=== PATIENT | male | born 1960 | race Caucasian/White ===

== ENCOUNTER → 2024-02-27 19:41 | Outpatient (REF) | payer OTHER, SELFPAY | LOC: MRI 3T 19:41 | PROVIDERS: ATTENDING PHYSICIAN Specialist; FAMILY PHYSICIAN Family Medicine | DX: R97.20 Elevated prostate specific antigen [PSA] (principal); Z80.42 Family history of malignant neoplasm of prostate | CPT/HCPCS: 72197; A9575 ==

== ENCOUNTER → 2024-08-06 13:29 | Outpatient (REF) | payer OTHER, SELFPAY | LOC: RCS 13:29 | PROVIDERS: ATTENDING PHYSICIAN Internal Medicine Cardiovascular Disease; FAMILY PHYSICIAN Family Medicine | DX: R07.89 Other chest pain (principal) | CPT/HCPCS: 93017; 93350 ==

== ENCOUNTER → 2024-08-09 14:56 | Outpatient (REF) | payer OTHER, SELFPAY | LOC: RCS 14:56 | PROVIDERS: ATTENDING PHYSICIAN Internal Medicine Cardiovascular Disease; FAMILY PHYSICIAN Family Medicine | DX: I49.3 Ventricular premature depolarization (principal) | CPT/HCPCS: 93306 ==

== ENCOUNTER 2025-04-07 06:41 | Day surgery (SDC) | payer OTHER, SELFPAY ==
[2025-04-01 08:35] VITALS: BMI 26.1
--- NOTE | 2025-04-07 07:26 | HP.FOC2 ---
Focused History & Physical
Chief Complaint
HPI:
Chief Complaint: Umbilical hernia
HPI / Indication for Planned Procedure: Will plan for an open umbilical hernia repair with possible mesh
Relevant Past Medical History: Other (Prostate cancer)
Relevant Social History: Negative
Relevant Family History: Negative
Relevant Past Surgical History: Positive for (Prostatectomy)
Review of Systems
Review of Pertinent Systems: All Systems Negative
Medication
See Medication form for detailed medications: Yes
Medication List (including Herbals & OTC):
nxzoehnwwaa-dtqvpihlm-zaa C-Mn 500 mg-400 mg capsule 2 cap PO DAILY 04/01/25
multivitamin 1 tab PO DAILY 04/01/25
tadalafil 5 mg tablet 5 mg PO DAILY 04/01/25
Medications Reviewed: Yes
Allergies and Reactions
Patient has Allergies: No
Noted Allergies and Reactions:
Allergy/AdvReac Type Severity Reaction Status Date / Time
No Known Allergies Allergy Verified 04/01/25 12:42
Pertinent Physical Exam
All Other Systems: Negative
Head/Neck: Normal
Diagnosis / Assessment
This is a 64-year-old male with a symptomatic umbilical hernia
Plan / Procedure
Will plan for an open repair with possible mesh under sedation
Anesthesia/Sedation to be done by Anesthesia Provider: Yes
[2025-04-07 07:30] VITALS: BP 137/86; BMI 26.1
[2025-04-07] MEDS: TYLENOL 1000 MG PO (07:39)
[2025-04-07] MEDS: NORMOSOL-R/PLASMALYTE-A 1000 IV (07:39)
--- NOTE | 2025-04-07 07:54 | W.SUR.PREOP ---
Pre-Operative Surgical Note
-
I have examined this patient prior to the performance of the scheduled procedure.
The patient's condition is unchanged from the time of the current History and
Physical and the patient is able to undergo the scheduled procedure.
[2025-04-07 09:00] VITALS: BP 90/50
[2025-04-07 09:15] VITALS: BP 109/61
--- NOTE | 2025-04-07 09:18 | W.IMMPOSTOP ---
Surgical Immed Post Op Note
-
Primary Surgeon: Royer Otero MD
Assisting Surgeon: None
Pre-op Diagnosis: Umbilical hernia
Post-op Diagnosis: Same
Procedure Performed: Open umbilical hernia repair with mesh
Anesthesia Type: General
Specimen / Cultures: None
Estimated Blood Loss: 3 cc
Complications: None
Operative Findings: 1.8 cm umbilical hernia containing preperitoneal fat that was debulked prior to developing a preperitoneal plane. This was reinforced with a 5 cm round Bard soft uncoated polypropylene mesh. The defect was then closed in the
transverse direction with 3 zgggiw-kv-qbrdf 0 PDS sutures.
--- NOTE | 2025-04-07 09:20 | OR.RPT ---
Operative Report
Operative Report
Patient Name: Gurjit Dominguez
: 1960
Date of Operation: 04/07/2025
Preoperative Diagnosis: Umbilical hernia
Postoperative Diagnosis: Same
Procedure(s):
Open umbilical hernia with mesh
Surgeon(s):
Dr. Otero
Bead Machine Operator(s):
PO Morales
Anesthesia: General
Estimated Blood Loss: 1 cc
Urine Output: None
Drains/Lines/Implants: 5 cm round Bard Soft uncoated polypropylene mesh
Specimens: None
Indication for surgery:
The patient has a symptomatic umbilical hernia. After review of their therapeutic options, they elected to pursue open repair.
Operative Findings: 1.8 cm umbilical hernia containing preperitoneal fat that was debulked prior to developing a preperitoneal plane. This was reinforced with a 5 cm round Bard soft uncoated polypropylene mesh. The defect was then closed in the
transverse direction with 3 kyzmuj-cv-asbap 0 PDS sutures.
Details of the operation:
After successful induction of anesthesia, the patient was prepped and draped in the supine position. A team timeout was performed confirming administration of DVT prophylaxis, IV antibiotics and SCDs. The skin was anesthetized with 0.25% Marcaine
and an infraumbilical incision was made and dissection carried down to the fascia. The hernia sac was then encircled and carefully dissected off of the umbilical stalk and debulked using 3-0 Vicryl ties before it was returned to the abdomen. The
defect measured 1.8 cm. The preperitoneal fat was dissected to create a pocket large enough to accommodate the 5 x 5 cm mesh to ensure the mesh laid completely flat. The defect was then closed in the transverse direction using three 0 PDS
veskca-zy-ybevq sutures. The umbilical stalk was then tacked down to the fascia with a 3-0 Vicryl suture. The dermis was then approximated with interrupted 3-0 Vicryl sutures followed by Dermabond. The patient returned to the Recovery Room in
stable condition. Sponge and instrument counts were correct. No specimens sent to Pathology.
I was the attending physician and performed the procedure with assistance from the SWABBER above. I was present for all portions of the case.
Royer Otero MD
[2025-04-07 09:30] VITALS: BP 109/60
[2025-04-07 09:45] VITALS: BP 114/69
== END 2025-04-07 10:10 | disposition home or self-care (01) ==
LOC: SDS 06:41
PROVIDERS: ATTENDING PHYSICIAN Surgery; FAMILY PHYSICIAN Family Medicine
DX: K42.9 Umbilical hernia without obstruction or gangrene (principal)
CPT/HCPCS: 49593; 36415; 93005

== ENCOUNTER → 2025-05-24 11:03 | Outpatient (REF) | payer OTHER, SELFPAY | LOC: RAD 11:03 | PROVIDERS: ATTENDING PHYSICIAN Family Medicine | DX: R09.89 Other specified symptoms and signs involving the circulatory and respiratory systems (principal) | CPT/HCPCS: 71046; 93005 ==

== ENCOUNTER → 2025-05-25 13:55 | Outpatient (REF) | payer OTHER, SELFPAY | LOC: RCS 13:55 | PROVIDERS: ATTENDING PHYSICIAN Family Medicine | DX: R09.89 Other specified symptoms and signs involving the circulatory and respiratory systems (principal) | CPT/HCPCS: 93306 ==

== ENCOUNTER → 2025-06-03 11:15 | Outpatient (REF) | payer OTHER, SELFPAY | LOC: RAD 11:15 | PROVIDERS: ATTENDING PHYSICIAN Family Medicine | DX: R09.89 Other specified symptoms and signs involving the circulatory and respiratory systems (principal) | CPT/HCPCS: 70491; Q9967 ==

== ENCOUNTER → 2025-06-22 16:21 | Outpatient (REF) | payer OTHER, SELFPAY | LOC: RAD 16:21 | PROVIDERS: ATTENDING PHYSICIAN Family Medicine | DX: R09.89 Other specified symptoms and signs involving the circulatory and respiratory systems (principal) | CPT/HCPCS: 71275; Q9967 ==